=== PATIENT | male | born 1980 | race Caucasian/White ===

== ENCOUNTER 2020-01-19 13:53 | Emergency (ER) | payer BC, SELFPAY ==
[2020-01-19 13:54] VITALS: BP 131/95; PULSE 91; RESP 20; TEMP 37.1; O2SAT 100
[2020-01-19] MEDS: ONDANSETRON INJ 4 MG/2 ML VIAL IV PUSH (14:30)
[2020-01-19] MEDS: SODIUM CHLORIDE 0.9% IV 1,000 ML 999 ML IV CONT (14:30)
[2020-01-19 14:52] LABS: Basophils Absolute Auto 0.1 K/mm3 (0.0-0.1); Basophils Percent Auto 0.5 % (0.2-1.2); Eosinophils Percent Auto 0.2 % (0-4.4); Hemoglobin 15.2 g/dL (14.0-18.0); Immature Granulocyte Absolute 0.04 K/mm3 (0.00-0.031); Immature Granulocyte Percent A 0.3 % (0-0.5); Lymphocytes Absolute Auto 2.36 K/mm3 (0.9-3.2); Mean Corpuscular HGB Conc 33.8 g/dl (32-36); Mean Corpuscular Hemoglobin 30.1 pg (26-34); Mean Corpuscular Volume 89.1 fl (80-100); Mean Platelet Volume 10.1 fl (7.4-10.4); Monocytes Absolute Auto 0.7 K/mm3 (0.1-0.6); Monocytes Percent Auto 5.7 % (2.6-8.5); Neutrophils Absolute Auto 8.7 K/mm3 (1.3-6.7); Neutrophils Percent Auto 73.3 % (45.5-73.1); Platelet Count Result 268 k/mm3 (150-375); Red Blood Count 5.05 M/mm3 (4.6-6.20); Red Cell Distribution Width 13.2 % (11.5-14.5); White Blood Count 11.8 K/mm3 (4.5-10.0)
[2020-01-19 14:54] LABS: Ethanol < 10 mg/dL (<10)
--- NOTE | 2020-01-19 14:55 | ED.GENADULT ---
HPI - General Adult General Chief complaint: Alcohol Stated complaint: ALCOHOL WITHDRAWALS Time Seen by Provider: 01/19/20 14:00 History of Present Illness HPI narrative: Patient is a 39-year-old male who presents the ER with concerns of alcohol withdrawal. Reports he was drinking very heavily for the last 3 days because he got in a fight with his girlfriend. Reports he has history of alcoholism and 4 years ago once had an alcohol withdrawal seizure because he drank every single day. Since then he only drinks on the weekends. The frequency of his drinking is not a typical form but he does report the quantity was increased. He reports that he now feels like he has an upset stomach and he has been vomiting intermittently. No diarrhea/fever/chills/sweats/sinus congestion/dyspnea/cough. No alleviating factors that he cannot. Symptoms are only worsened by eating. No history of pancreatitis. Related Data Allergies Allergy/AdvReac Type Severity Reaction Status Date / Time No Known Allergies Allergy Verified 01/19/20 17:11 Review of Systems Review of Systems: All systems reviewed & are unremarkable except as noted in HPI and below Constitutional: Constitutional: Denies chills, Reports fatigue, Denies fever(s) and Denies weakness ENT: Denies nasal congestion and Denies sore throat Cardiovascular: Cardiovascular: Denies chest pain and Denies radiating jaw, neck or arm pain Gastrointestinal: Gastrointestinal: Reports abdominal pain, Denies constipation, Denies diarrhea, Reports nausea and Reports vomiting Neurologic: Denies confusion, Denies syncope, Denies numbness and Denies weakness PMFSH Past Medical History Medical History (Updated 01/19/20 @ 17:11 by Kd Hennessy MD) Alcohol withdrawal seizure Alcoholism Surgical History Surgical History (Updated 01/19/20 @ 15:13 by Kd Hennessy MD) No significant past surgical history Social History Social History (Updated 01/19/20 @ 15:13 by Kd Hennessy MD) Smoking status: Current every day smoker Alcohol intake: current Exam Narrative: Exam Narrative: GENERAL: Well-appearing, well-nourished, and in no acute distress. HEAD: Normocephalic, atraumatic. ENT: Mucous membranes moist. Pharyngeal erythema tonsillar exudate. NECK: Supple. CHEST: Clear to auscultation. No respiratory distress. HEART: Regular rate and rhythm. Normal peripheral pulses. ABDOMEN: Soft, nontender, nondistended. EXTREMITIES: Normal range of motion. No edema. SKIN: Warm, dry, no rash. NEURO: Alert and oriented x3. No tremors. Course Course Emergency Course: Informed of results, hydrated, discharge home. Vital Signs Vital signs: Vital Signs Temperature 98.7 F 01/19/20 13:54 Pulse Rate 91 01/19/20 13:54 Respiratory Rate 20 01/19/20 13:54 Blood Pressure 131/95 H 01/19/20 13:54 Pulse Oximetry 100 01/19/20 13:54 Temperature 98.7 F 01/19/20 13:54 Pulse Rate 82 01/19/20 15:44 Respiratory Rate 18 01/19/20 15:44 Blood Pressure 132/89 01/19/20 15:44 Pulse Oximetry 100 01/19/20 15:44 Medical Decision Making Vital Signs Vital Signs: Vital Signs Temperature 98.7 F 01/19/20 13:54 Pulse Rate 91 01/19/20 13:54 Respiratory Rate 20 01/19/20 13:54 Blood Pressure 131/95 H 01/19/20 13:54 Pulse Oximetry 100 01/19/20 13:54 Temperature 98.7 F 01/19/20 13:54 Pulse Rate 82 01/19/20 15:44 Respiratory Rate 18 01/19/20 15:44 Blood Pressure 132/89 01/19/20 15:44 Pulse Oximetry 100 01/19/20 15:44 Lab Data Result diagrams: 01/19/20 14:20 01/19/20 14:34 Labs: Lab Results 01/19/20 01/19/20 01/19/20 Range/Units 14:20 14:34 14:34 WBC 11.8 H (4.5-10.0) K/mm3 RBC 5.05 (4.6-6.20) M/mm3 Hgb 15.2 (14.0-18.0) g/dL Hct 45.0 (42.0-52.0) % MCV 89.1 (80-100) fl MCH 30.1 (26-34) pg MCHC 33.8 (32-36) g/dl RDW 13.2 (11.5-14.5) % Plt Count 268 (1
[2020-01-19 15:07] LABS: Alanine Aminotransferase 13 U/L (4-50); Albumin Level 4.6 g/dL (3.5-5.1); Alkaline Phosphatase 103 U/L (38-126); Aspartate Amino Transferase 34 U/L (17-59); Bilirubin,Total 0.8 mg/dL (0.2-1.3); Blood Urea Nitrogen 13 mg/dL (9-20); Calcium 9.4 mg/dL (8.4-10.2); Carbon Dioxide 23 mmol/L (22-30); Chloride 98 mmol/L (98-107); Estimated CRCL calculation 113 ml/min; Estimated Glomerular Filt Rate > 60; Glucose 95 mg/dL (75-110); Lipase 76 U/L (23-300); Potassium 3.7 mmol/L (3.4-5.0); Sodium 132 mmol/L (137-145)
[2020-01-19 15:43] LABS: Add Urine Microscopic? YES; Appearance Urine Clear (Clear); Bacteria Urine Trace /hpf; Bilirubin Urine 1+ (Negative); Blood Urine Negative (Negative); Color Urine Yellow (Yellow); Glucose Urine UA Negative (Negative); Ketones Urine 1+ mg/dL (Negative); Leukocyte Esterase Ur Trace LEU/UL (Negative); Mucus Urine Moderate /lpf; Nitrate Urine Negative (Negative); Protein Urine 2+ mg/dL (Negative); RBC Urine 0-2 /hpf (0-2); Specific Grav Ur 1.028 (1.001-1.035); Squamous Epithelial Cell Urine Occasional /hpf (Few)
[2020-01-19 15:44] VITALS: BP 132/89; PULSE 82; RESP 18; O2SAT 100
[2020-01-19 17:28] VITALS: BP 140/70; PULSE 80; RESP 20; O2SAT 100
== END 2020-01-19 17:31 | disposition home or self-care (01) ==
PROVIDERS: Emergency Provider Emergency Medicine
DX: R11.2 Nausea with vomiting, unspecified (principal); F17.200 Nicotine dependence, unspecified, uncomplicated; F10.20 Alcohol dependence, uncomplicated
CPT/HCPCS: 36415; 80048; 80076; 80307; 81001; 83690; 85025; 96361; 96374; 99284; J2405; J7030